=== PATIENT | male | born 1980 | race Caucasian/White ===

== ENCOUNTER 2019-05-05 01:30 | Emergency (ER) | payer OTHER ==
[~2019-05-05] VITALS: Ht 190.5 cm; Wt 100.0 kg
--- NOTE | 2019-05-05 01:48 | PHYS DOC ---
Adult General Chief Complaint Chief Complaint: DIZZY/LIGHT HEADED HPI HPI 39-year-old male presents to the emergency department via police, patient is an inmate. Patient had a hypoglycemic episode blood sugars 64, passed out hitting his head on the floor as well as door. Patient received 18 units of insulin tonight at dinner time however states he's had decreased oral intake. Patient describes headache, dizziness, nausea. Patient's blood sugars currently 116 down from 187 after 2 g of glucose. Patient is underlying history of diabetes, hypothyroidism. He denies any chest pain, shortness of breath, abdominal pain. Nothing makes his symptoms worse, nothing makes his symptoms better. Review of Systems Review of Systems Constitutional: Denies fever or chills [] Respiratory: Denies cough or shortness of breath [] Cardiovascular: No additional information not addressed in HPI [] GI: Denies abdominal pain, + nausea, no vomiting, bloody stools or diarrhea [] Musculoskeletal: Denies back pain or joint pain [] Integument: Denies rash or skin lesions [] Neurologic: + headache, no focal weakness or sensory changes [] All other systems were reviewed and found to be within normal limits, except as documented in this note. Current Medications Current Medications Current Medications Medications (Trade) Dose Ordered Sig/Xiomara Start Time Stop Time Status Last Admin Dose Admin Acetaminophen (Tylenol) 1,000 mg 1X ONCE 05/05/19 02:30 05/05/19 02:31 DC Allergies Allergies Allergies Coded Allergies Type Severity Reaction Last Updated Verified No Known Drug Allergies 05/05/19 No Physical Exam Physical Exam Constitutional: Well developed, well nourished, no acute distress, non-toxic appearance. [] HENT: Normocephalic, atraumatic - ttp behind left ear, no obvious hematoma on exam, bilateral external ears normal, oropharynx moist, no oral exudates, nose normal. [] Eyes: PERRLA, EOMI, conjunctiva normal, no discharge. [] Neck: Normal range of motion, no tenderness, supple, no stridor. [] Cardiovascular:Heart rate regular rhythm, no murmur [] Lungs & Thorax: Bilateral breath sounds clear to auscultation [] Abdomen: Bowel sounds normal, soft, no tenderness, no masses, no pulsatile masses. [] Skin: Warm, dry, no erythema, no rash. [] Back: No tenderness, no CVA tenderness. [] Extremities: No tenderness, no edema. [] Neurologic: Alert and oriented X 3, no focal deficits noted. [] Psychologic: Affect normal, judgement normal, mood normal. [] Current Patient Data Vital Signs Vital Signs Date Time Temp Pulse Resp B/P (MAP) Pulse Ox O2 Delivery O2 Flow Rate FiO2 05/05/19 01:35 98.1 66 20 148/90 (109) 99 Room Air 98.1 Lab Values Laboratory Tests Test 05/05/19 01:40 Glucose (Fingerstick) 116 mg/dL (70-99) H EKG EKG [] Radiology/Procedures Radiology/Procedures [facility] [address] [place], [place] [id number] IMAGING REPORT Signed PATIENT: CHRISSIE RON ACCOUNT: [id number] : 1980 LOCATION: ER AGE: 39 SEX: M EXAM STATUS: REG ER ORD. PHYSICIAN: HARRIETT YOUNGER MD REASON: hypoglycemia, fall hit head, ?loc, patient is inmate PROCEDURE: CT HEAD WO CONTRAST CT Head W/O Contrast: History: Hypoglycemia fall hit head Comparison: none Axial images were obtained without contrast. The daly and white matter appears normal and symmetrical for the patients age. There is no mass effect, extraaxial fluid collections or hydrocephalus. There is no gross bleed. There is no focal loss of daly-white matter distinction to suggest acute ischemia, i.e. stroke. There is fluid in the right maxillary sinus. Impression: No acute intracranial findings. PQRS Compliance Statement: One or more of the following individualized dose reduction techniques were utilized for this examination: 1. Automated exposure control 2. Adjustment of the mA and/or kV according to patient size 3. Use of iterative reconstruction technique Electronically signed by: Theresa Mac III, MD (05/05/2019 2:26 AM) [id number] DICTATED and SIGNED BY: THERESA MAC III, MD DATE: 05/05/19 0226 [] Course & Med Decision Making Course & Med Decision Making Pertinent Labs and Imaging studies reviewed. (See chart for details) []39-year-old male presents to the emergency department via police, patient is an inmate. Patient had a hypoglycemic episode blood sugars 64, passed out hitting his head on the floor as well as door. Patient received 18 units of insulin tonight at dinner time however states he's had decreased oral intake. Patient describes headache, dizziness, nausea. Patient's blood sugars currently 116 down from 187 after 2 g of glucose. Patient is underlying history of diabetes, hypothyroidism. He denies any chest pain, shortness of breath, abdominal pain. Nothing makes his symptoms worse, nothing makes his symptoms better. Hypoglycemia 2/2 receiving insulin at dinner and not eating CT head reviewed Recommend dc home Follow up with facility physician as needed Return precautions provided Dragon Disclaimer Dragon Disclaimer This electronic medical record was generated, in whole or in part, using a voice recognition dictation system. Departure Departure Impression: Primary Impression: Hypoglycemia Additional Impression: Head injury Disposition: 05 TRANSFER OTHER Condition: IMPROVED Patient Instructions: Hypoglycemia, [id number] Additional Instructions: Recommend follow up with facility MD CT head without acute findings Recommend eating food when taking insulin If decreased appetite, consider holding or reducing insulin Tylenol/Motrin as needed for headache Problem Qualifiers Additional Impression: Head injury Encounter type: initial encounter Qualified Codes: S09.90XA - Unspecified injury of head, initial encounter HARRIETT YOUNGER MD May 05, 2019 01:48
[2019-05-05 02:00] VITALS: BP 131/81
[2019-05-05] MEDS ORDERED: BLOO-932 MC (02:13)
[2019-05-05] MEDS ORDERED: HALO5TAB PO (02:15)
[2019-05-05] MEDS ORDERED: ATOR20TA58 PO (02:15)
[2019-05-05] MEDS ORDERED: ALPH600C5 PO (02:15)
[2019-05-05] MEDS ORDERED: DULO30CA2 PO (02:15)
[2019-05-05] MEDS ORDERED: INSU100V6 SQ (02:18)
[2019-05-05] MEDS ORDERED: LISI2.5T PO (02:19)
[2019-05-05] MEDS ORDERED: LEVO88TA4 PO (02:19)
[2019-05-05] MEDS ORDERED: METF500S5 PO (02:19)
--- NOTE | 2019-05-05 02:29 | RAD ---
CT Head W/O Contrast: History: Hypoglycemia fall hit head Comparison: none Axial images were obtained without contrast. The daly and white matter appears normal and symmetrical for the patients age. There is no mass effect, extraaxial fluid collections or hydrocephalus. There is no gross bleed. There is no focal loss of daly-white matter distinction to suggest acute ischemia, i.e. stroke. There is fluid in the right maxillary sinus. Impression: No acute intracranial findings. RS Compliance Statement: One or more of the following individualized dose reduction techniques were utilized for this examination: 1. Automated exposure control 2. Adjustment of the mA and/or kV according to patient size 3. Use of iterative reconstruction technique Electronically signed by: Suleman Roldan III, MD (05/05/2019 2:26 AM) [id number]
[2019-05-05] MEDS ORDERED: ACETAMINOPHEN 500 MG TABLET PO ONE (02:30)
== END 2019-05-05 02:52 | disposition home or self-care (01) ==
LOC: ER 01:30 → EEVIPCON 01:30 → ER 02:52
DX: S09.8XXA Other specified injuries of head, initial encounter (principal); E16.2 Hypoglycemia, unspecified; R42 Dizziness and giddiness; R11.0 Nausea; R55 Syncope and collapse; W22.03XA Walked into furniture, initial encounter; Y93.89 Activity, other specified; Y92.89 Other specified places as the place of occurrence of the external cause; Y99.8 Other external cause status
CPT/HCPCS: 70450; 82962; 99284; 99285